=== PATIENT | male | born 1975 | race African-American/Black ===

== ENCOUNTER 2016-12-11 11:43 | Emergency (ER) | payer OTHER ==
[~2016-12-11] VITALS: Ht 160 cm; Wt 80.0 kg
[2016-12-11 14:16] VITALS: BP 177/117
== END 2016-12-11 14:18 | disposition home or self-care (01) ==
LOC: ED 14:00
DX: J20.8 Acute bronchitis due to other specified organisms (principal); B97.89 Other viral agents as the cause of diseases classified elsewhere; M94.0 Chondrocostal junction syndrome [Tietze]; I10 Essential (primary) hypertension; M10.9 Gout, unspecified
CPT/HCPCS: 71020; 93005; 99284